=== PATIENT | female | born 2000 | race Two or more races ===

== ENCOUNTER 2019-07-06 07:45 | Observation (INO) | payer MEDICAID ==
[2019-07-07] MEDS ORDERED: PREN-96 PO (07:22)
== END 2019-07-06 09:02 | disposition home or self-care (01) | DRG 566 ==
LOC: LDRP 07:45
PROVIDERS: ADMIT Obstetrics & Gynecology; ATTEND Obstetrics & Gynecology
DX: O62.9 Abnormality of forces of labor, unspecified (principal); O26.893 Other specified pregnancy related conditions, third trimester; N89.8 Other specified noninflammatory disorders of vagina; Z3A.38 38 weeks gestation of pregnancy
CPT/HCPCS: 59025; 81002; G0378

== ENCOUNTER 2019-07-07 06:20 | Inpatient (IN) | payer MEDICAID ==
[~2019-07-07] VITALS: Ht 162.6 cm; Wt 104.3 kg
[2019-07-07] MEDS ORDERED: PREN-96 PO (07:22)
[2019-07-07] MEDS ORDERED: LACT. RINGERS/OXYTOCIN 20UNITS 1,000 ML IV SCH ×2 (09:20→09:52)
[2019-07-07] MEDS ORDERED: NALBUPHINE HCL 10 MG/1ml INJECTION IV PRN (09:30)
[2019-07-07] MEDS ORDERED: LIDOCAINE 2%HCL (LOCAL ANESTH.) INJ 20ML MDV ID ONE (09:30)
[2019-07-07] MEDS ORDERED: METHYLERGONOVINE MALEATE 0.2 MG/ML AMP IM PRN (09:30)
[2019-07-07] MEDS ORDERED: WITCH HAZEL-GLYCERIN PAD TOP PRN (09:30)
[2019-07-07] MEDS ORDERED: CARBOPROST TROMETHAMINE 250 MCG/1ML VIAL IM PRN (09:30)
[2019-07-07] MEDS ORDERED: PHISODERM TOP SOLN 240ML BTL TOP PRN (09:30)
[2019-07-07] MEDS ORDERED: DERMOPLAST 60ML BOTTLE TOP PRN (09:30)
[2019-07-07 10:04] LABS: Urine WBC None Seen /hpf (0 - 5)
[2019-07-07 10:12] LABS: Basophils # (auto) 0 uL; Eosinophils # (auto) 0 uL; Monocytes # (auto) 0.5 uL; White Blood Cell 11.2 10^3/uL (4.4-10.8)
[2019-07-07 10:13] LABS: Urine Bacteria FEW /hpf (None Seen); Urine Blood Negative /uL (Negative); Urine Specific Gravity 1.016 (1.001-1.035)
[2019-07-07 10:16] LABS: Basophils % (auto) 0.4 % (0.0-2.0); Hematocrit 37.5 % (36.0-46.0); Hemoglobin 12.3 g/dL (12.2-16.2); Lymphocytes # (auto) 1.3 uL; Lymphocytes % (auto) 11.9 % (10.0-50.0); Mean Corpuscular Hemoglobin 26.9 pg (28.0-32.0); Mean Corpuscular Hgb Conc. 32.8 g/dL (32.0-36.0); Mean Corpuscular Volume 81.9 fL (80.0-100.0); Monocytes % (auto) 4.1 % (0.0-12.0); Neutrophils # (auto) 9.4 uL; Neutrophils % (auto) 83.6 % (37.0-80.0); Platelet Count (auto) 297 10^3/uL (140-450); Red Blood Cells 4.58 10^6/uL (4.0-5.20); Red Cell Distribution Width 17.1 % (11.8-14.3)
[2019-07-07 10:26] LABS: Albumin 2.8 g/dL (3.4-5.0); Potassium 3.8 mmol/L (3.5-5.1)
[2019-07-07 10:30] LABS: BUN/Creatinine Ratio 11.8; Bilirubin, Total 0.4 mg/dL (0.2-1.0); Total Protein 7.2 g/dL (6.4-8.2)
[2019-07-07 10:38] LABS: INR < 0.93 (0.9-1.15); Partial Thromboplastin Time 25.9 sec (23.64-32.05)
[2019-07-07] MEDS ORDERED: fentaNYL W ROPIVACAINE 150 ML EPI SCH (11:00)
[2019-07-07] MEDS ORDERED: ePHEDrine SULFATE 50 MG/ML AMP IV ONE (11:00)
[2019-07-07] MEDS: LACTATED RINGER'S 1,000 ML IV SCH ×2 (11:10→12:07)
[2019-07-07] MEDS ORDERED: ACETAMINOPHEN 325 MG TAB PO PRN (17:30)
--- NOTE | 2019-07-07 20:05 | NUR ---
Ambulation: Patient OOB with standby assistance by RN. Patient ambulated to bathroom with steady gait. Patient able to void without difficulty. [facility] teaching provided with returned demonstration by patient. Clean gown provided and bed linen changed. Patient ambulated back to bed with steady gait and no distress noted.
[2019-07-07 23:15] VITALS: BP 133/83
[2019-07-07] MEDS ORDERED: RHO (D) IMMUNE GLOBULIN 300 MCG INJ IM ONE (23:45)
[2019-07-08 02:59] VITALS: BP 115/67
[2019-07-08] MEDS: IBUPROFEN 600 MG TAB PO PRN ×2 (06:28→20:06)
--- NOTE | 2019-07-08 07:00 | NUR ---
clothing consultant Antonietta at bedside and aware patients temp 99.8 . Okay to discharge late if no temp and if patient gets temp call Dr. Salas.
[2019-07-08 15:50] VITALS: BP 120/88
--- NOTE | 2019-07-08 16:47 | NUR ---
Hold discharge till am per Dr. Salas
--- NOTE | 2019-07-08 16:50 | NUR ---
UPDATE GIVEN TO DR. PRINCE. READ ALL TEMP, WBC LAB VALUES AND NEW ORDERS RECEIVED CALL BACK WITH UA RESULT AND START KEFLEX 500 MG QID/PO/AFTER URINE SPECIMEN COLLECTED AND RESULTED.
[2019-07-08 18:34] LABS: Urine Bacteria FEW /hpf (None Seen); Urine Blood 2+ /uL (Negative); Urine Mucus FEW (None Seen); Urine Specific Gravity 1.015 (1.001-1.035); Urine WBC 27 /hpf (0 - 5)
[2019-07-08 19:00] VITALS: BP 126/72
--- NOTE | 2019-07-08 20:18 | NUR ---
SBAR provided to Gabriel GIPSON Results of UA reported. No new orders. Continue with keflex PO as prescribed.
[2019-07-08] MEDS: CEPHALEXIN 250 MG CAP PO SCH (20:22)
[2019-07-08 22:46] VITALS: BP 136/81
[2019-07-09 03:00] VITALS: BP 137/86
[2019-07-09 05:07] LABS: RPR Non Reactive (Non Reactive)
[2019-07-09] MEDS: CEPHALEXIN 250 MG CAP PO SCH (06:38)
--- NOTE | 2019-07-09 08:00 | NUR ---
Discharge: Discharge instructions given as ordered. Pt encouraged to follow up with [facility] as instructed. All questions and concerns addressed. Patient verbalized understanding. Medication reconciliation completed and copy given to patient. All required/requested vaccines given T-DAP and copies of vaccinations given to patient. Patient encouraged to prepare to depart unit.
--- NOTE | 2019-07-09 08:22 | NUR ---
Discharge: Patient taken to vehicle via wheelchair with all personal belongings, accompanied by staff and family member. No distress noted at time of departure, no adverse changes in status since initial assessment.
--- NOTE | 2019-07-09 08:25 | NUR ---
CALLED [facility]ARM[facility] OF [facility] [address] IN [place] [phone] AND SPOKE WITH PHARMACIST DIEGO. PER DR. PRINCE CALL IN MEDICATION KEFLEX 500 MG/PO/QID TIMES 7 DAYS AND PER Jr MONK CALL IN MOTRIN 400 MG/Q 6 HOURS PRN FOR PAIN TIMES 20 TABS.
== END 2019-07-09 08:22 | disposition home or self-care (01) | DRG 560 ==
LOC: LDRP 06:20 → OBSVTOIN 09:17 → LDRP 10:20
PROVIDERS: ADMIT Obstetrics & Gynecology; ATTEND Obstetrics & Gynecology
PROC: 10E0XZZ Delivery of Products of Conception, External Approach (ICD-10-PCS; principal; 2019-07-07)
PROC: 0KQM0ZZ Repair Perineum Muscle, Open Approach (ICD-10-PCS; 2019-07-07)
PROC: 3E0234Z Introduction of Serum, Toxoid and Vaccine into Muscle, Percutaneous Approach (ICD-10-PCS; 2019-07-07)
PROC: 3E0R3BZ Introduction of Anesthetic Agent into Spinal Canal, Percutaneous Approach (ICD-10-PCS; 2019-07-07)
PROC: 00HU33Z Insertion of Infusion Device into Spinal Canal, Percutaneous Approach (ICD-10-PCS; 2019-07-07)
DX: O70.1 Second degree perineal laceration during delivery (principal); O86.20 Urinary tract infection following delivery, unspecified; Z37.0 Single live birth; Z3A.38 38 weeks gestation of pregnancy
CPT/HCPCS: 36415; 51702; 59025; 59409; 80053; 81001; 81002; 84112; 85025; 85610; 85730; 86592; 86850; 86900; 86901; 90384; 96372; G0378; J2590; J3010

== ENCOUNTER 2021-05-30 12:07 | Emergency (ER) | payer MEDICAID ==
[~2021-05-30] VITALS: Ht 162.6 cm; Wt 116.1 kg
[~2021-05-30 12:07] MED LIST: PREN-96 PO
[2021-05-30 13:32] LABS: Urine WBC None Seen /hpf (0 - 5)
[2021-05-30 13:50] LABS: Urine Bacteria NONE SEEN /hpf (None Seen); Urine Blood 1+ /uL (Negative); Urine Mucus FEW (None Seen); Urine Specific Gravity 1.031 (1.001-1.035)
[2021-05-30 13:58] LABS: Basophils # (auto) 0 10 ^3/uL (0-0.2); Basophils % (auto) 0.4 % (0.0-2.0); Eosinophils # (auto) 0.1 10 ^3/uL (0-0.8); Hemoglobin 10.9 g/dL (12.2-16.2); Monocytes % (auto) 5.1 % (0.0-12.0); White Blood Cell 8.8 10^3/uL (4.4-10.8)
[2021-05-30 14:00] LABS: Hematocrit 34.3 % (36.0-46.0); Lymphocytes # (auto) 2.1 10 ^3/uL (0.4-5.4); Lymphocytes % (auto) 24.1 % (10.0-50.0); Mean Corpuscular Hemoglobin 23.2 pg (28.0-32.0); Mean Corpuscular Hgb Conc. 31.8 g/dL (32.0-36.0); Mean Corpuscular Volume 72.9 fL (80.0-100.0); Monocytes # (auto) 0.5 10 ^3/uL (0-1.3); Neutrophils # (auto) 6.1 10 ^3/uL (1.6-8.6); Neutrophils % (auto) 69.4 % (37.0-80.0); Nucleated Red Blood Cells % 0.1 %; Red Blood Cells 4.71 10^6/uL (4.0-5.20); Red Cell Distribution Width 16.4 % (11.8-14.3)
[2021-05-30 14:18] LABS: Albumin 3.4 g/dL (3.4-5.0); Calcium 8.6 mg/dL (8.5-10.1); Potassium 3.8 mmol/L (3.5-5.1)
[2021-05-30 14:23] LABS: BUN/Creatinine Ratio 16.4; Bilirubin, Total 0.3 mg/dL (0.2-1.0); Total Protein 7.6 g/dL (6.4-8.2)
[2021-05-30 17:07] VITALS: BP 138/74
== END 2021-05-30 17:10 | disposition home or self-care (01) ==
LOC: ER 12:07
DX: O20.8 Other hemorrhage in early pregnancy (principal); Z79.899 Other long term (current) drug therapy; Z3A.08 8 weeks gestation of pregnancy
CPT/HCPCS: 36415; 76801; 76817; 80053; 81001; 84702; 85025

== ENCOUNTER 2022-03-19 23:24 | Emergency (ER) | payer MEDICAID ==
[~2022-03-19] VITALS: Ht 162.6 cm; Wt 122.0 kg
[2022-03-19 23:24] VITALS: BP 132/73
[2022-03-19] MEDS ORDERED: predniSONE 20 MG TAB PO ONE (23:45)
== END 2022-03-20 02:33 | disposition home or self-care (01) ==
LOC: ER 23:24
DX: T78.3XXA Angioneurotic edema, initial encounter (principal); Z79.899 Other long term (current) drug therapy
CPT/HCPCS: 99283; J7512